=== PATIENT | female | born 1965 ===

== ENCOUNTER 2018-02-05 11:43 | Emergency (ER) | payer MEDICARE, OTHER, SELFPAY ==
[2018-02-05 11:56] VITALS: BP 154/92; PULSE 82; RESP 16; TEMP 37; O2SAT 99
--- NOTE | 2018-02-05 12:17 | ED.GENADULT ---
HPI - General Adult <SOMMER Palacios - Last Filed: 02/05/18 22:02> General Chief complaint: Hypertension Stated complaint: states blood pressure is high and head ache Time Seen by Provider: 02/05/18 12:17 Source: patient Mode of arrival: ambulatory Limitations: no limitations History of Present Illness HPI narrative: 52-year-old female with history of hypertension here for complaint of having a headache and increased blood pressures since yesterday. She reports she has had this type of headache on and off over the past 6 months. She states she has been working with her hydrological technical officer and also with sleep medicine to determine if the headache is caused by decreased oxygen levels at night. She reports that she started with a sharp headache last night. She also reports that her blood pressures been elevated over the past couple of days. She denies any fevers or chills. No trauma to the head. No nausea or vomiting. She denies any stressors or relievers of symptoms. She does state that she is taking her blood pressure medications as prescribed Related Data Home Medications Medication Instructions Recorded Confirmed epinephrine 0.3 mg IJ ONCE PRN #0 12/27/15 02/05/18 levalbuterol tartrate [Xopenex HFA] 1 puff INH Q4HP PRN #0 12/27/15 02/05/18 loratadine 10 mg PO DAILY #0 12/27/15 02/05/18 montelukast 10 mg PO DAILY #0 12/27/15 02/05/18 diclofenac sodium [Voltaren] 1 applic TOPICAL PRN PRN #0 01/19/16 02/05/18 fluticasone 2 spray INTRANASAL DAILY #0 01/19/16 02/05/18 hydralazine 10 mg PO BID #0 12/11/16 02/05/18 Disabled Parking Permit 1 ea MISCELLANEOUS DIRECTED 02/05/18 02/05/18 Domperidone 1 dose PO DIRECTED 02/05/18 02/05/18 cyclosporine [Restasis] 1 drp OPHTHALMIC (EYE) BID 02/05/18 02/05/18 enalapril maleate 2.5 mg PO DAILY 02/05/18 02/05/18 estradiol [Yuvafem] 1 tab VAGINAL 2XW 02/05/18 02/05/18 fluticasone-salmeterol [AirDuo 1 puff INHALATION DAILY 02/05/18 02/05/18 RespiClick] ketoconazole 1 applic TOPICAL DIRECTED 02/05/18 02/05/18 Allergies Allergy/AdvReac Type Severity Reaction Status Date / Time adhesive Allergy Severe RASH FROM Verified 07/25/17 15:31 TAPE bacitracin Allergy Severe SEVERE RASH Verified 07/25/17 15:31 [From Neosporin ([id number])] neomycin Allergy Severe SEVERE RASH Verified 07/25/17 15:31 [From Neosporin ([id number])] polymyxin B Allergy Severe SEVERE RASH Verified 07/25/17 15:31 [From Neosporin ([id number])] prochlorperazine Allergy Severe TARKIVE Verified 07/25/17 15:31 [From COMPAZINE] DYSKINESIA SYMPTOMS Sulfa (Sulfonamide Allergy Severe RASH Verified 07/25/17 15:31 Antibiotics) enalapril [ENALAPRIL] Allergy Intermediate ABDOMINAL Verified 07/25/17 15:31 PAIN wheat Allergy Intermediate CELIAC Verified 07/25/17 15:31 ARB-Angiotensin Receptor AdvReac Severe GI Verified 07/25/17 15:31 Antagonist DISTRESS [ARB-ANGIOTENSIN RECEPTOR AND ECZEMA ANTAGONIST] fentanyl [FENTANYL] AdvReac Severe SWELLING Verified 07/25/17 15:31 AND SUNBURN TYPE REDNESS ON CHEST AND FACE nickel [NICKEL] AdvReac Severe RASH Verified 07/25/17 15:31 nitrofurantoin AdvReac Severe FLU-LIKE Verified 07/25/17 15:31 [NITROFURANTOIN] SYMPTOMS MERCEDES Inhibitors AdvReac Intermediate Cough Verified 07/25/17 15:31 [MERCEDES INHIBITORS] amlodipine [AMLODIPINE] AdvReac Intermediate REDNESS Verified 07/25/17 15:31 clonidine [CLONIDINE] AdvReac Intermediate TOO Verified 07/25/17 15:31 SEDATING red dye AdvReac Intermediate #40 - GI Verified 07/25/17 15:31 DISTRESS tramadol [TRAMADOL] AdvReac Mild I DON'T Verified 07/25/17 15:31 LIKE TAKING IT MOLD SPORES Allergy Severe HAY FEVER Uncoded 05/29/17 12:31 AND SINUS INFECTION Review of Systems <SOMMER Palacios - Last Filed: 02/05/18 22:02> Constitutional Denies chills, Denies fever(s), Reports headache(s), Denies lethargy and Denies weakness Eyes Denies change in vision, Denies eye discharge, Denies irritation and Denies loss of vision ENT Ears, Nose, Mouth, and Throat: Denies change in voice, Reports headache(s), Denies neck pain and Denies sore throat Cardiovascular Denies chest pain, Denies irregular heart rhythm, Denies lightheadedness, Denies palpitations, Denies dyspnea, Denies dyspnea on exertion and Denies orthopnea Comments: Elevated blood pressure Respiratory Denies cough, Denies dyspnea, Denies dyspnea on exertion and Denies wheezing Gastrointestinal Gastrointestinal: Denies abdominal pain, Denies change in bowel habits, Denies diarrhea, Denies nausea and Denies vomiting Genitourinary Denies hematuria, Denies flank pain, Denies urinary incontinence and Denies urinary urgency Musculoskeletal Denies neck pain Integumentary/Breasts Denies pruritus, Denies erythema, Denies rash and Denies wounds Neurologic Denies confusion, Reports headache(s), Denies loss of vision and Denies weakness Psychiatric Denies anxiety, Denies confusion, Denies depression, Denies homicidal ideation and Denies suicidal ideation Endocrine Denies palpitations Hematologic/Lymphatic Denies easy bruising Allergic/Immunologic Denies wheezing Exam <SOMMER Palacios - Last Filed: 02/05/18 22:02> Initial Vital Signs Initial Vital Signs: Vital Signs Temperature 98.6 F 02/05/18 11:56 Pulse Rate 82 02/05/18 11:56 Respiratory Rate 16 02/05/18 11:56 Blood Pressure 154/92 H 02/05/18 11:56 Pulse Oximetry 99 02/05/18 11:56 Const General: cooperative and well developed Nutritional Appearance: well nourished Orientation: alert, awake, oriented x3 and not confused [facility] Mouth: oral mucosae normal and moist mucous membranes Throat: posterior oropharynx normal Eyes General: appearance normal, both eyes and all related structures Eyelids: eyelids normal Conjunctivae: conjunctivae normal Sclera: sclerae normal Pupils: PERRL EOM: EOM intact bilaterally Resp Effort & Inspection: normal respiratory effort, able to speak in complete sentences, no respiratory distress and no use of accessory muscles Auscultation: clear to auscultation bilaterally, no rales, no rhonchi and no wheezes Cardio Rate: regular rate Rhythm: regular rhythm Heart Sounds: no click, no gallops, no murmurs and no rubs Pulses: normal peripheral pulses Skin General: no rashes or lesions noted, No jaundice and No petechiae Neuro General: alert, oriented x3, gait normal and no focal motor deficits Speech: speech normal <Venus Fernandez MD - Last Filed: 02/07/18 15:45> Initial Vital Signs Initial Vital Signs: Vital Signs Temperature 98.6 F 02/05/18 11:56 Pulse Rate 82 02/05/18 11:56 Respiratory Rate 16 02/05/18 11:56 Blood Pressure 154/92 H 02/05/18 11:56 Pulse Oximetry 99 02/05/18 11:56 Course <SOMMER Palacios - Last Filed: 02/05/18 22:02> Orders Ordered: Discontinued Medications Sodium Chloride (Normal Saline 0.9%) 1,000 mls @ 1,000 mls/hr IV BOLUS ONE Stop: 02/05/18 13:27 Last Infusion: 02/05/18 14:07 Dose: 0 mls/hr Admin: 02/05/18 13:12 Dose: 500 mls/hr Ketorolac Tromethamine (Toradol) 30 mg IV NOW ONE Stop: 02/05/18 12:29 Last Admin: 02/05/18 13:13 Dose: 30 mg Vital Signs - 8 hr 02/05/18 11:56 02/05/18 13:00 Temperature 98.6 F Pulse Rate 82 69 Respiratory Rate 16 22 Blood Pressure 154/92 H Blood Pressure [Right Arm] 138/93 H Pulse Oximetry 99 <Venus Fernandez MD - Last Filed: 02/07/18 15:45> Orders Ordered: Discontinued Medications Sodium Chloride (Normal Saline 0.9%) 1,000 mls @ 1,000 mls/hr IV BOLUS ONE Stop: 02/05/18 13:27 Last Infusion: 02/05/18 14:07 Dose: 0 mls/hr Admin: 02/05/18 13:12 Dose: 500 mls/hr Ketorolac Tromethamine (Toradol) 30 mg IV NOW ONE Stop: 02/05/18 12:29 Last Admin: 02/05/18 13:13 Dose: 30 mg Vital Signs - 8 hr 02/05/18 11:56 12/19/18 13:00 Temperature 98.6 F Pulse Rate 82 69 Respiratory Rate 16 22 Blood Pressure 154/92 H Blood Pressure [Right Arm] 138/93 H Pulse Oximetry 99 Medical Decision Making <SOMMER Palacios - Last Filed: 02/05/18 22:02> Lab Data Result diagrams: 02/05/18 13:25 02/05/18 13:25 Lab Results 02/05/18 02/05/18 02/05/18 Range/Units 12:46 13:25 13:25 WBC 5.9 (4.5-11.0) X10^3/uL RBC 4.62 (4.0-5.2) X10^6/uL Hgb 14.0 (12.0-16.0) g/dL Hct 41.7 (36-46) % MCV 90.3 (80-100) fL MCH 30.3 (26-34) PG MCHC 33.6 (30-36) % RDW 13.3 (11.6-14.8) % Plt Count 263 (150-400) X10^3/uL Neut % (Auto) 64.6 (50-75) % Lymph % (Auto) 22.8 L (25-40) % [place] % (Auto) 9.4 (3-14) % Eos % (Auto) 2.5 (2-4) % Baso % (Auto) 0.7 (0-2) % Neut # (Auto) 3800 (5785-4441) /uL Sodium 145 (137-145) mmol/L Potassium 4.1 (3.4-5.1) mmol/L Chloride 105 (98-107) mmol/L Carbon Dioxide 25 (22-32) mmol/L BUN 13 (7-17) mg/dL Creatinine 0.60 (0.52-1.04) mg/dL Estimated GFR > 60.0 (>60) mL/min BUN/Creatinine Ratio 21.7 (6-22) Glucose 112 H (70-100) mg/dL Calcium 9.5 (8.4-10.2) mg/dL Total Bilirubin 1.0 (0.2-1.3) mg/dL AST 48 H (14-36) IU/L ALT 67 H (9-52) IU/L Alkaline Phosphatase 92 (38-126) U/L Total Creatine Kinase 36 (30-135) U/L CK-MB (CK-2) TNP CK-MB (CK-2) Rel Index TNP Troponin I < 0.012 (0.01-0.034) ng/mL Total Protein 7.0 (6.3-8.2) g/dL Albumin 4.3 (3.5-5.0) g/dL Globulin 2.7 (1.7-4.1) g/dL Albumin/Globulin Ratio 1.6 (1.0-2.8) Urine RBC None seen (0-5/HPF) Urine WBC 0-1/hpf (0-5/HPF) Ur Squamous Epith Cells 1-5 /hpf Urine Bacteria None seen (None) Ur Culture Indicated? Cult not indicated Micro UA Comment Not Reportable Urine Dip Bedside Urine Glucose Negative Bedside Urine Bilirubin - Negative Bedside Urine Ketone - Negative Urine Specific [place] 1.015 Bedside Urine Occult Blood - Negative Bedside Urine pH 6.5 Bedside Urine Protein - Negative Bedside Urine Urobilinogen - Negative Bedside Urine Nitrite - Negative Bedside Urine Leukocytes ++ 125 Esterase Point of care testing: Urine Dip Bedside Urine Glucose Negative Bedside Urine Bilirubin - Negative Bedside Urine Ketone - Negative Urine Specific [place] 1.015 Bedside Urine Occult Blood - Negative Bedside Urine pH 6.5 Bedside Urine Protein - Negative Bedside Urine Urobilinogen - Negative Bedside Urine Nitrite - Negative Bedside Urine Leukocytes ++ [address] scan - head: Radiologist's impression: [place] [address] CT Scan Report Signed Patient: Halie Tam MR#: [id number] : 1965 Acct:[id number] Age/Sex: 52 / F Date of Service: 02/05/18 Loc: ED Accession Number: [id number] Procedure: CT head/brain wo con Ordering Provider: Roderick Jiménez PROCEDURE: CT HEAD/BRAIN WO CON INDICATIONS: States elevated blood pressure with bad headache TECHNIQUE: Noncontrast 4.5 mm thick angled axial sections acquired from the foramen magnum to the vertex, with coronal and sagittal reformats. For radiation dose reduction, the following was used: automated exposure control, adjustment of mA and/or kV according to patient size. COMPARISON: None. FINDINGS: Image quality: Excellent. CSF spaces: Basal cisterns are patent. No extra-axial fluid collections. Ventricles are normal in size and shape. Brain: No midline shift. No intracranial masses or hemorrhage. Wilson-white matter interface is normal. Skull and face: Calvarium and visualized facial bones are intact, without suspicious lesions. Sinuses: Visualized sinuses and mastoids are clear. IMPRESSION: Unremarkable CT of the head. No acute intracranial hemorrhage. Dictated by: Virgil Florez M.D. on 02/05/2018 at 11:48 Approved by: Virgil Florez M.D. on 02/05/2018 at 11:49 Chest x-ray: Radiologist's impression: View Report History [address] [address] XRay Report Signed Patient: Halie Tam MR#: [id number] : 1965 Acct:[id number] Age/Sex: 52 / F Date of Service: 02/05/18 Loc: ED Accession Number: [id number] Procedure: XR chest 1V Ordering Provider: Roderick Jiménez PROCEDURE: XR CHEST 1V INDICATIONS: States elevated blood pressure TECHNIQUE: One view of the chest was acquired. COMPARISON: None. FINDINGS: Surgical changes and devices: None. Lungs and pleura: No pleural effusions or pneumothorax. Lungs are clear. Mediastinum: Mediastinal contours appear normal. Heart size is normal. Bones and chest wall: No suspicious bony lesions. Overlying soft tissues appear unremarkable. IMPRESSION: No acute disease. Dictated by: Andrei Hansen M.D. on 02/05/2018 at 13:02 Approved by: Andrei Hansen M.D. on 02/05/2018 at 13:02 ECG Data Interpretation: EKG shows normal sinus rhythm with no ST elevation or depression. No ectopy. Ventricular rate is 74. Pr interval of 1 59. QRS duration 98. QTC 401 MDM Narrative Medical decision making narrative: CBC and Chem panel were obtained were unremarkable. Cardiac enzymes were obtained and were negative. EKG shows sinus rhythm with no ST elevation or depression. No ectopy. Chest x-ray and head CT were obtained were negative for any acute findings. Headache is described as starting at the back of the skull and radiating over the top of the head suspicious for tension-type headache. She is encouraged to use range of motion to the neck and also relaxation techniques. She does have Flexeril at home she may try this as well to help with her symptoms. [id number] Tylenol or Motrin as needed for any discomfort. Believe that her blood pressure is secondary to her headache follow up with primary care provider in the next few days for re-evaluation. For any worsening symptoms return to the emergency room. <Venus Fernandez MD - Last Filed: 02/07/18 15:45> Lab Data Lab Results 02/05/18 02/05/18 02/05/18 Range/Units 12:46 13:25 13:25 WBC 5.9 (4.5-11.0) X10^3/uL RBC 4.62 (4.0-5.2) X10^6/uL Hgb 14.0 (12.0-16.0) g/dL Hct 41.7 (36-46) % MCV 90.3 (80-100) fL MCH 30.3 (26-34) PG MCHC 33.6 (30-36) % RDW 13.3 (11.6-14.8) % Plt Count 263 (150-400) X10^3/uL Neut % (Auto) 64.6 (50-75) % Lymph % (Auto) 22.8 L (25-40) % [place] % (Auto) 9.4 (3-14) % Eos % (Auto) 2.5 (2-4) % Baso % (Auto) 0.7 (0-2) % Neut # (Auto) 3800 (6555-2886) /uL Sodium 145 (137-145) mmol/L Potassium 4.1 (3.4-5.1) mmol/L Chloride 105 (98-107) mmol/L Carbon Dioxide 25 (22-32) mmol/L BUN 13 (7-17) mg/dL Creatinine 0.60 (0.52-1.04) mg/dL Estimated GFR > 60.0 (>60) mL/min BUN/Creatinine Ratio 21.7 (6-22) Glucose 112 H (70-100) mg/dL Calcium 9.5 (8.4-10.2) mg/dL Total Bilirubin 1.0 (0.2-1.3) mg/dL AST 48 H (14-36) IU/L ALT 67 H (9-52) IU/L Alkaline Phosphatase 92 (38-126) U/L Total Creatine Kinase 36 (30-135) U/L CK-MB (CK-2) TNP CK-MB (CK-2) Rel Index TNP Troponin I < 0.012 (0.01-0.034) ng/mL Total Protein 7.0 (6.3-8.2) g/dL Albumin 4.3 (3.5-5.0) g/dL Globulin 2.7 (1.7-4.1) g/dL Albumin/Globulin Ratio 1.6 (1.0-2.8) Urine RBC None seen (0-5/HPF) Urine WBC 0-1/hpf (0-5/HPF) Ur Squamous Epith Cells 1-5 /hpf Urine Bacteria None seen (None) Ur Culture Indicated? Cult not indicated Micro UA Comment Not Reportable Urine Dip Bedside Urine Glucose Negative Bedside Urine Bilirubin - Negative Bedside Urine Ketone - Negative Urine Specific [place] 1.015 Bedside Urine Occult Blood - Negative Bedside Urine pH 6.5 Bedside Urine Protein - Negative Bedside Urine Urobilinogen - Negative Bedside Urine Nitrite - Negative Bedside Urine Leukocytes ++ 125 Esterase Point of care testing: Urine Dip Bedside Urine Glucose Negative Bedside Urine Bilirubin - Negative Bedside Urine Ketone - Negative Urine Specific [place] 1.015 Bedside Urine Occult Blood - Negative Bedside Urine pH 6.5 Bedside Urine Protein - Negative Bedside Urine Urobilinogen - Negative Bedside Urine Nitrite - Negative Bedside Urine Leukocytes ++ 125 Esterase Discharge Plan Departure Patient Disposition: Home Clinical Impression: Acute tension-type headache Discharge Date/Time: 02/05/18 14:19 Interventions: ED Discharge Assessment Last Done: 02/05/18 14:18 Instructions: Tension Headache Activity Restrictions/Additional Instructions: Laboratory results imaging EKG today were unremarkable. Description of the headache suspicious for tension type headache. Try relaxation techniques range of motion exercises to help release tension. May also use already prescribed muscle relaxer. [id number] Tylenol or Motrin as needed for any discomfort. Follow up with her primary care provider. For any worsening symptoms return to the emergency room. Prescriptions: No Action loratadine 10 MG tablet 10 mg PO DAILY Qty: 0 RF: 0 montelukast 10 MG tablet 10 mg PO DAILY Qty: 0 RF: 0 levalbuterol tartrate [Xopenex HFA] 45 MCG/INH HFA aerosol inhaler 1 puff INH Q4HP PRN (Reason: Shortness Of Breath) Qty: 0 RF: 0 epinephrine 0.3 MG/0.3 ML auto-injector 0.3 mg IJ ONCE PRN (Reason: Allergic Reaction) Qty: 0 RF: 0 diclofenac sodium [Voltaren] 1 % Gel 1 applic TOPICAL PRN PRN (Reason: pain) Qty: 0 RF: 0 fluticasone 16 GM spray,suspension 2 spray Intranasal DAILY Qty: 0 RF: 0 hydralazine 10 MG tablet 10 mg PO BID Qty: 0 RF: 0 ketoconazole 2 % shampoo 1 applic Topical DIRECTED RF: 0 enalapril maleate 2.5 mg tablet 2.5 mg PO DAILY RF: 0 cyclosporine [Restasis] 0.05 % dropperette 1 drp ophthalmic (eye) BID RF: 0 estradiol [Yuvafem] 10 mcg tablet 1 tab Vaginal 2XW RF: 0 fluticasone-salmeterol [AirDuo RespiClick] 113-14 mcg/actuation aerosol powdr breath activated 1 puff Inhalation DAILY RF: 0 Domperidone 1 dose PO DIRECTED RF: 0 Disabled Parking Permit 1 ea miscellaneous DIRECTED RF: 0 Referrals: Jordyn Galaviz PA-C [[facility]] -
--- NOTE | 2018-02-05 12:28 | DI.RAD.S_ITS ---
PROCEDURE: XR CHEST 1V INDICATIONS: States elevated blood pressure TECHNIQUE: One view of the chest was acquired. COMPARISON: None. FINDINGS: Surgical changes and devices: None. Lungs and pleura: No pleural effusions or pneumothorax. Lungs are clear. Mediastinum: Mediastinal contours appear normal. Heart size is normal. Bones and chest wall: No suspicious bony lesions. Overlying soft tissues appear unremarkable. IMPRESSION: No acute disease. Dictated by: Andrei Hansen M.D. on 02/05/2018 at 13:02 Approved by: Andrei Hansen M.D. on 02/05/2018 at 13:02
--- NOTE | 2018-02-05 12:39 | DI.CT.S_ITS ---
PROCEDURE: CT HEAD/BRAIN WO CON INDICATIONS: States elevated blood pressure with bad headache TECHNIQUE: Noncontrast 4.5 mm thick angled axial sections acquired from the foramen magnum to the vertex, with coronal and sagittal reformats. For radiation dose reduction, the following was used: automated exposure control, adjustment of mA and/or kV according to patient size. COMPARISON: None. FINDINGS: Image quality: Excellent. CSF spaces: Basal cisterns are patent. No extra-axial fluid collections. Ventricles are normal in size and shape. Brain: No midline shift. No intracranial masses or hemorrhage. Wilson-white matter interface is normal. Skull and face: Calvarium and visualized facial bones are intact, without suspicious lesions. Sinuses: Visualized sinuses and mastoids are clear. IMPRESSION: Unremarkable CT of the head. No acute intracranial hemorrhage. Dictated by: Virgil Florez M.D. on 02/05/2018 at 11:48 Approved by: Virgil Florez M.D. on 02/05/2018 at 11:49
[2018-02-05 12:54] LABS: Bacteria Urine None Seen; RBC Urine None Seen (0-5/HPF)
[2018-02-05 12:55] LABS: WBC Urine 0-1/HPF (0-5/HPF)
[2018-02-05 12:56] LABS: Culture Indicated Urine Cult Not Indicated; Squamous Epithelial Cell Urine 1-5 /HPF
[2018-02-05 13:00] VITALS: BP 138/93; PULSE 69; RESP 22
[2018-02-05] MEDS: SODIUM CHLORIDE 0.9% 1,000 ML 500 ML IV (13:12)
[2018-02-05] MEDS: KETOROLAC 60 MG/2 ML VIAL 30 MG IV (13:13)
[2018-02-05 13:31] LABS: Add Manual Diff / Slide Review NO; Basophils Percent Auto 0.7 % (0-2); Eosinophils Percent Auto 2.5 % (2-4); Hematocrit 41.7 % (36-46); Lymphocytes Percent Auto 22.8 % (25-40); Mean Corpuscular HGB Conc 33.6 % (30-36); Mean Corpuscular Hemoglobin 30.3 PG (26-34); Mean Corpuscular Volume 90.3 fL (80-100); Monocytes Percent Auto 9.4 % (3-14); Neutrophils Absolute Auto 3800 /uL (1500-7000); Neutrophils Percent Auto 64.6 % (50-75); Platelet Count 263 X10^3/uL (150-400); Red Blood Cell Count 4.62 X10^6/uL (4.0-5.2); Red Cell Distribution Width 13.3 % (11.6-14.8); White Blood Cell Count 5.9 X10^3/uL (4.5-11.0)
[2018-02-05 13:43] LABS: Alanine Aminotransferase 67 IU/L (9-52); Albumin 4.3 g/dL (3.5-5.0); Albumin Globulin Ratio 1.6 (1.0-2.8); Alkaline Phosphatase 92 U/L (38-126); Aspartate Aminotransferase 48 IU/L (14-36); BUN Creatinine Ratio 21.7 (6-22); Blood Urea Nitrogen 13 mg/dL (7-17); Calcium 9.5 mg/dL (8.4-10.2); Carbon Dioxide 25 mmol/L (22-32); Chloride 105 mmol/L (98-107); Creatine Kinase 36 U/L (30-135); Estimated Glomerular Filt Rate > 60.0 mL/min (>60); Globulin 2.7 g/dL (1.7-4.1); Glucose 112 mg/dL (70-100); HEMOLYSIS < 15 (0-50); Potassium 4.1 mmol/L (3.4-5.1); Sodium 145 mmol/L (137-145)
--- NOTE | 2018-02-05 13:52 | ED_ITS ---
HPI - General Adult <SOMMER Palacios - Last Filed: 02/05/18 22:02> General Chief complaint: Hypertension Stated complaint: states blood pressure is high and head ache Time Seen by Provider: 02/05/18 12:17 Source: patient Mode of arrival: ambulatory Limitations: no limitations History of Present Illness HPI narrative: 52-year-old female with history of hypertension here for complaint of having a headache and increased blood pressures since yesterday. She reports she has had this type of headache on and off over the past 6 months. She states she has been working with her casino manager and also with sleep medicine to determine if the headache is caused by decreased oxygen levels at night. She reports that she started with a sharp headache last night. She also reports that her blood pressures been elevated over the past couple of days. She denies any fevers or chills. No trauma to the head. No nausea or vomiting. She denies any stressors or relievers of symptoms. She does state that she is taking her blood pressure medications as prescribed Related Data Home Medications Medication Instructions Recorded Confirmed epinephrine 0.3 mg IJ ONCE PRN #0 12/27/15 02/05/18 levalbuterol tartrate [Xopenex HFA] 1 puff INH Q4HP PRN #0 12/27/15 02/05/18 loratadine 10 mg PO DAILY #0 12/27/15 02/05/18 montelukast 10 mg PO DAILY #0 12/27/15 02/05/18 diclofenac sodium [Voltaren] 1 applic TOPICAL PRN PRN #0 01/19/16 02/05/18 fluticasone 2 spray INTRANASAL DAILY #0 01/19/16 02/05/18 hydralazine 10 mg PO BID #0 12/11/16 02/05/18 Disabled Parking Permit 1 ea MISCELLANEOUS DIRECTED 02/05/18 02/05/18 Domperidone 1 dose PO DIRECTED 02/05/18 02/05/18 cyclosporine [Restasis] 1 drp OPHTHALMIC (EYE) BID 02/05/18 02/05/18 enalapril maleate 2.5 mg PO DAILY 02/05/18 02/05/18 estradiol [Yuvafem] 1 tab VAGINAL 2XW 02/05/18 02/05/18 fluticasone-salmeterol [AirDuo 1 puff INHALATION DAILY 02/05/18 02/05/18 RespiClick] ketoconazole 1 applic TOPICAL DIRECTED 02/05/18 02/05/18 Allergies Allergy/AdvReac Type Severity Reaction Status Date / Time adhesive Allergy Severe RASH FROM Verified 07/25/17 15:31 TAPE bacitracin Allergy Severe SEVERE RASH Verified 07/25/17 15:31 [From Neosporin ([id number])] neomycin Allergy Severe SEVERE RASH Verified 07/25/17 15:31 [From Neosporin ([id number])] polymyxin B Allergy Severe SEVERE RASH Verified 07/25/17 15:31 [From Neosporin ([id number])] prochlorperazine Allergy Severe TARKIVE Verified 07/25/17 15:31 [From COMPAZINE] DYSKINESIA SYMPTOMS Sulfa (Sulfonamide Allergy Severe RASH Verified 07/25/17 15:31 Antibiotics) enalapril [ENALAPRIL] Allergy Intermediate ABDOMINAL Verified 07/25/17 15:31 PAIN wheat Allergy Intermediate CELIAC Verified 07/25/17 15:31 ARB-Angiotensin Receptor AdvReac Severe GI Verified 07/25/17 15:31 Antagonist DISTRESS [ARB-ANGIOTENSIN RECEPTOR AND ECZEMA ANTAGONIST] fentanyl [FENTANYL] AdvReac Severe SWELLING Verified 07/25/17 15:31 AND SUNBURN TYPE REDNESS ON CHEST AND FACE nickel [NICKEL] AdvReac Severe RASH Verified 07/25/17 15:31 nitrofurantoin AdvReac Severe FLU-LIKE Verified 07/25/17 15:31 [NITROFURANTOIN] SYMPTOMS MERCEDES Inhibitors AdvReac Intermediate Cough Verified 07/25/17 15:31 [MERCEDES INHIBITORS] amlodipine [AMLODIPINE] AdvReac Intermediate REDNESS Verified 07/25/17 15:31 clonidine [CLONIDINE] AdvReac Intermediate TOO Verified 07/25/17 15:31 SEDATING red dye AdvReac Intermediate #40 - GI Verified 07/25/17 15:31 DISTRESS tramadol [TRAMADOL] AdvReac Mild I DON'T Verified 07/25/17 15:31 LIKE TAKING IT MOLD SPORES Allergy Severe HAY FEVER Uncoded 05/29/17 12:31 AND SINUS INFECTION Review of Systems <SOMMER Palacios - Last Filed: 02/05/18 22:02> Constitutional Denies chills, Denies fever(s), Reports headache(s), Denies lethargy and Denies weakness Eyes Denies change in vision, Denies eye discharge, Denies irritation and Denies loss of vision ENT Ears, Nose, Mouth, and Throat: Denies change in voice, Reports headache(s), Denies neck pain and Denies sore throat Cardiovascular Denies chest pain, Denies irregular heart rhythm, Denies lightheadedness, Denies palpitations, Denies dyspnea, Denies dyspnea on exertion and Denies orthopnea Comments: Elevated blood pressure Respiratory Denies cough, Denies dyspnea, Denies dyspnea on exertion and Denies wheezing Gastrointestinal Gastrointestinal: Denies abdominal pain, Denies change in bowel habits, Denies diarrhea, Denies nausea and Denies vomiting Genitourinary Denies hematuria, Denies flank pain, Denies urinary incontinence and Denies urinary urgency Musculoskeletal Denies neck pain Integumentary/Breasts Denies pruritus, Denies erythema, Denies rash and Denies wounds Neurologic Denies confusion, Reports headache(s), Denies loss of vision and Denies weakness Psychiatric Denies anxiety, Denies confusion, Denies depression, Denies homicidal ideation and Denies suicidal ideation Endocrine Denies palpitations Hematologic/Lymphatic Denies easy bruising Allergic/Immunologic Denies wheezing Exam <SOMMER Palacios - Last Filed: 02/05/18 22:02> Initial Vital Signs Initial Vital Signs: Vital Signs Temperature 98.6 F 02/05/18 11:56 Pulse Rate 82 02/05/18 11:56 Respiratory Rate 16 02/05/18 11:56 Blood Pressure 154/92 H 02/05/18 11:56 Pulse Oximetry 99 02/05/18 11:56 Const General: cooperative and well developed Nutritional Appearance: well nourished Orientation: alert, awake, oriented x3 and not confused [facility] Mouth: oral mucosae normal and moist mucous membranes Throat: posterior oropharynx normal Eyes General: appearance normal, both eyes and all related structures Eyelids: eyelids normal Conjunctivae: conjunctivae normal Sclera: sclerae normal Pupils: PERRL EOM: EOM intact bilaterally Resp Effort & Inspection: normal respiratory effort, able to speak in complete sentences, no respiratory distress and no use of accessory muscles Auscultation: clear to auscultation bilaterally, no rales, no rhonchi and no wheezes Cardio Rate: regular rate Rhythm: regular rhythm Heart Sounds: no click, no gallops, no murmurs and no rubs Pulses: normal peripheral pulses Skin General: no rashes or lesions noted, No jaundice and No petechiae Neuro General: alert, oriented x3, gait normal and no focal motor deficits Speech: speech normal <Venus Fernandez MD - Last Filed: 02/07/18 15:45> Initial Vital Signs Initial Vital Signs: Vital Signs Temperature 98.6 F 02/05/18 11:56 Pulse Rate 82 02/05/18 11:56 Respiratory Rate 16 02/05/18 11:56 Blood Pressure 154/92 H 02/05/18 11:56 Pulse Oximetry 99 02/05/18 11:56 Course <SOMMER Palacios - Last Filed: 02/05/18 22:02> Orders Ordered: Discontinued Medications Sodium Chloride (Normal Saline 0.9%) 1,000 mls @ 1,000 mls/hr IV BOLUS ONE Stop: 02/05/18 13:27 Last Infusion: 02/05/18 14:07 Dose: 0 mls/hr Admin: 02/05/18 13:12 Dose: 500 mls/hr Ketorolac Tromethamine (Toradol) 30 mg IV NOW ONE Stop: 02/05/18 12:29 Last Admin: 02/05/18 13:13 Dose: 30 mg Vital Signs - 8 hr 02/05/18 11:56 02/05/18 13:00 Temperature 98.6 F Pulse Rate 82 69 Respiratory Rate 16 22 Blood Pressure 154/92 H Blood Pressure [Right Arm] 138/93 H Pulse Oximetry 99 <Venus Fernandez MD - Last Filed: 02/07/18 15:45> Orders Ordered: Discontinued Medications Sodium Chloride (Normal Saline 0.9%) 1,000 mls @ 1,000 mls/hr IV BOLUS ONE Stop: 02/05/18 13:27 Last Infusion: 02/05/18 14:07 Dose: 0 mls/hr Admin: 02/05/18 13:12 Dose: 500 mls/hr Ketorolac Tromethamine (Toradol) 30 mg IV NOW ONE Stop: 02/05/18 12:29 Last Admin: 02/05/18 13:13 Dose: 30 mg Vital Signs - 8 hr 02/05/18 11:56 12/19/18 13:00 Temperature 98.6 F Pulse Rate 82 69 Respiratory Rate 16 22 Blood Pressure 154/92 H Blood Pressure [Right Arm] 138/93 H Pulse Oximetry 99 Medical Decision Making <SOMMER Palacios - Last Filed: 02/05/18 22:02> Lab Data Result diagrams: 02/05/18 13:25 02/05/18 13:25 Lab Results 02/05/18 02/05/18 02/05/18 Range/Units 12:46 13:25 13:25 WBC 5.9 (4.5-11.0) X10^3/uL RBC 4.62 (4.0-5.2) X10^6/uL Hgb 14.0 (12.0-16.0) g/dL Hct 41.7 (36-46) % MCV 90.3 (80-100) fL MCH 30.3 (26-34) PG MCHC 33.6 (30-36) % RDW 13.3 (11.6-14.8) % Plt Count 263 (150-400) X10^3/uL Neut % (Auto) 64.6 (50-75) % Lymph % (Auto) 22.8 L (25-40) % [place] % (Auto) 9.4 (3-14) % Eos % (Auto) 2.5 (2-4) % Baso % (Auto) 0.7 (0-2) % Neut # (Auto) 3800 (6378-6257) /uL Sodium 145 (137-145) mmol/L Potassium 4.1 (3.4-5.1) mmol/L Chloride 105 (98-107) mmol/L Carbon Dioxide 25 (22-32) mmol/L BUN 13 (7-17) mg/dL Creatinine 0.60 (0.52-1.04) mg/dL Estimated GFR > 60.0 (>60) mL/min BUN/Creatinine Ratio 21.7 (6-22) Glucose 112 H (70-100) mg/dL Calcium 9.5 (8.4-10.2) mg/dL Total Bilirubin 1.0 (0.2-1.3) mg/dL AST 48 H (14-36) IU/L ALT 67 H (9-52) IU/L Alkaline Phosphatase 92 (38-126) U/L Total Creatine Kinase 36 (30-135) U/L CK-MB (CK-2) TNP CK-MB (CK-2) Rel Index TNP Troponin I < 0.012 (0.01-0.034) ng/mL Total Protein 7.0 (6.3-8.2) g/dL Albumin 4.3 (3.5-5.0) g/dL Globulin 2.7 (1.7-4.1) g/dL Albumin/Globulin Ratio 1.6 (1.0-2.8) Urine RBC None seen (0-5/HPF) Urine WBC 0-1/hpf (0-5/HPF) Ur Squamous Epith Cells 1-5 /hpf Urine Bacteria None seen (None) Ur Culture Indicated? Cult not indicated Micro UA Comment Not Reportable Urine Dip Bedside Urine Glucose Negative Bedside Urine Bilirubin - Negative Bedside Urine Ketone - Negative Urine Specific [place] 1.015 Bedside Urine Occult Blood - Negative Bedside Urine pH 6.5 Bedside Urine Protein - Negative Bedside Urine Urobilinogen - Negative Bedside Urine Nitrite - Negative Bedside Urine Leukocytes ++ 125 Esterase Point of care testing: Urine Dip Bedside Urine Glucose Negative Bedside Urine Bilirubin - Negative Bedside Urine Ketone - Negative Urine Specific [place] 1.015 Bedside Urine Occult Blood - Negative Bedside Urine pH 6.5 Bedside Urine Protein - Negative Bedside Urine Urobilinogen - Negative Bedside Urine Nitrite - Negative Bedside Urine Leukocytes ++ [address] scan - head: Radiologist's impression: [place] [address] CT Scan Report Signed Patient: Halie Tam MR#: [id number] : 1965 Acct:[id number] Age/Sex: 52 / F Date of Service: 02/05/18 Loc: ED Accession Number: [id number] Procedure: CT head/brain wo con Ordering Provider: Roderick Jiménez PROCEDURE: CT HEAD/BRAIN WO CON INDICATIONS: States elevated blood pressure with bad headache TECHNIQUE: Noncontrast 4.5 mm thick angled axial sections acquired from the foramen magnum to the vertex, with coronal and sagittal reformats. For radiation dose reduction, the following was used: automated exposure control, adjustment of mA and/or kV according to patient size. COMPARISON: None. FINDINGS: Image quality: Excellent. CSF spaces: Basal cisterns are patent. No extra-axial fluid collections. Ventricles are normal in size and shape. Brain: No midline shift. No intracranial masses or hemorrhage. Wilson-white matter interface is normal. Skull and face: Calvarium and visualized facial bones are intact, without suspicious lesions. Sinuses: Visualized sinuses and mastoids are clear. IMPRESSION: Unremarkable CT of the head. No acute intracranial hemorrhage. Dictated by: Virgil Florez M.D. on 02/05/2018 at 11:48 Approved by: Virgil Florez M.D. on 02/05/2018 at 11:49 Chest x-ray: Radiologist's impression: View Report History [address] [address] XRay Report Signed Patient: Halie Tam MR#: [id number] : 1965 Acct:[id number] Age/Sex: 52 / F Date of Service: 02/05/18 Loc: ED Accession Number: [id number] Procedure: XR chest 1V Ordering Provider: Roderick Jiménez PROCEDURE: XR CHEST 1V INDICATIONS: States elevated blood pressure TECHNIQUE: One view of the chest was acquired. COMPARISON: None. FINDINGS: Surgical changes and devices: None. Lungs and pleura: No pleural effusions or pneumothorax. Lungs are clear. Mediastinum: Mediastinal contours appear normal. Heart size is normal. Bones and chest wall: No suspicious bony lesions. Overlying soft tissues appear unremarkable. IMPRESSION: No acute disease. Dictated by: Andrei Hansen M.D. on 02/05/2018 at 13:02 Approved by: Andrei Hansen M.D. on 02/05/2018 at 13:02 ECG Data Interpretation: EKG shows normal sinus rhythm with no ST elevation or depression. No ectopy. Ventricular rate is 74. Pr interval of 1 59. QRS duration 98. QTC 401 MDM Narrative Medical decision making narrative: CBC and Chem panel were obtained were unremarkable. Cardiac enzymes were obtained and were negative. EKG shows sinus rhythm with no ST elevation or depression. No ectopy. Chest x-ray and head CT were obtained were negative for any acute findings. Headache is described as starting at the back of the skull and radiating over the top of the head suspicious for tension-type headache. She is encouraged to use range of motion to the neck and also relaxation techniques. She does have Flexeril at home she may try this as well to help with her symptoms. [id number] Tylenol or Motrin as needed for any discomfort. Believe that her blood pressure is secondary to her headache follow up with primary care provider in the next few days for re-evaluation. For any worsening symptoms return to the emergency room. <Venus Fernandez MD - Last Filed: 02/07/18 15:45> Lab Data Lab Results 02/05/18 02/05/18 02/05/18 Range/Units 12:46 13:25 13:25 WBC 5.9 (4.5-11.0) X10^3/uL RBC 4.62 (4.0-5.2) X10^6/uL Hgb 14.0 (12.0-16.0) g/dL Hct 41.7 (36-46) % MCV 90.3 (80-100) fL MCH 30.3 (26-34) PG MCHC 33.6 (30-36) % RDW 13.3 (11.6-14.8) % Plt Count 263 (150-400) X10^3/uL Neut % (Auto) 64.6 (50-75) % Lymph % (Auto) 22.8 L (25-40) % [place] % (Auto) 9.4 (3-14) % Eos % (Auto) 2.5 (2-4) % Baso % (Auto) 0.7 (0-2) % Neut # (Auto) 3800 (9622-8767) /uL Sodium 145 (137-145) mmol/L Potassium 4.1 (3.4-5.1) mmol/L Chloride 105 (98-107) mmol/L Carbon Dioxide 25 (22-32) mmol/L BUN 13 (7-17) mg/dL Creatinine 0.60 (0.52-1.04) mg/dL Estimated GFR > 60.0 (>60) mL/min BUN/Creatinine Ratio 21.7 (6-22) Glucose 112 H (70-100) mg/dL Calcium 9.5 (8.4-10.2) mg/dL Total Bilirubin 1.0 (0.2-1.3) mg/dL AST 48 H (14-36) IU/L ALT 67 H (9-52) IU/L Alkaline Phosphatase 92 (38-126) U/L Total Creatine Kinase 36 (30-135) U/L CK-MB (CK-2) TNP CK-MB (CK-2) Rel Index TNP Troponin I < 0.012 (0.01-0.034) ng/mL Total Protein 7.0 (6.3-8.2) g/dL Albumin 4.3 (3.5-5.0) g/dL Globulin 2.7 (1.7-4.1) g/dL Albumin/Globulin Ratio 1.6 (1.0-2.8) Urine RBC None seen (0-5/HPF) Urine WBC 0-1/hpf (0-5/HPF) Ur Squamous Epith Cells 1-5 /hpf Urine Bacteria None seen (None) Ur Culture Indicated? Cult not indicated Micro UA Comment Not Reportable Urine Dip Bedside Urine Glucose Negative Bedside Urine Bilirubin - Negative Bedside Urine Ketone - Negative Urine Specific [place] 1.015 Bedside Urine Occult Blood - Negative Bedside Urine pH 6.5 Bedside Urine Protein - Negative Bedside Urine Urobilinogen - Negative Bedside Urine Nitrite - Negative Bedside Urine Leukocytes ++ 125 Esterase Point of care testing: Urine Dip Bedside Urine Glucose Negative Bedside Urine Bilirubin - Negative Bedside Urine Ketone - Negative Urine Specific [place] 1.015 Bedside Urine Occult Blood - Negative Bedside Urine pH 6.5 Bedside Urine Protein - Negative Bedside Urine Urobilinogen - Negative Bedside Urine Nitrite - Negative Bedside Urine Leukocytes ++ 125 Esterase Discharge Plan Departure Patient Disposition: Home Clinical Impression: Acute tension-type headache Discharge Date/Time: 02/05/18 14:19 Interventions: ED Discharge Assessment Last Done: 02/05/18 14:18 Instructions: Tension Headache Activity Restrictions/Additional Instructions: Laboratory results imaging EKG today were unremarkable. Description of the headache suspicious for tension type headache. Try relaxation techniques range of motion exercises to help release tension. May also use already prescribed muscle relaxer. [id number] Tylenol or Motrin as needed for any discomfort. Follow up with her primary care provider. For any worsening symptoms return to the emergency room. Prescriptions: No Action loratadine 10 MG tablet 10 mg PO DAILY Qty: 0 RF: 0 montelukast 10 MG tablet 10 mg PO DAILY Qty: 0 RF: 0 levalbuterol tartrate [Xopenex HFA] 45 MCG/INH HFA aerosol inhaler 1 puff INH Q4HP PRN (Reason: Shortness Of Breath) Qty: 0 RF: 0 epinephrine 0.3 MG/0.3 ML auto-injector 0.3 mg IJ ONCE PRN (Reason: Allergic Reaction) Qty: 0 RF: 0 diclofenac sodium [Voltaren] 1 % Gel 1 applic TOPICAL PRN PRN (Reason: pain) Qty: 0 RF: 0 fluticasone 16 GM spray,suspension 2 spray Intranasal DAILY Qty: 0 RF: 0 hydralazine 10 MG tablet 10 mg PO BID Qty: 0 RF: 0 ketoconazole 2 % shampoo 1 applic Topical DIRECTED RF: 0 enalapril maleate 2.5 mg tablet 2.5 mg PO DAILY RF: 0 cyclosporine [Restasis] 0.05 % dropperette 1 drp ophthalmic (eye) BID RF: 0 estradiol [Yuvafem] 10 mcg tablet 1 tab Vaginal 2XW RF: 0 fluticasone-salmeterol [AirDuo RespiClick] 113-14 mcg/actuation aerosol powdr breath activated 1 puff Inhalation DAILY RF: 0 Domperidone 1 dose PO DIRECTED RF: 0 Disabled Parking Permit 1 ea miscellaneous DIRECTED RF: 0 Referrals: Jordyn Galaviz PA-C [[employer] Rep] -
[2018-02-05 13:55] LABS: Troponin I < 0.012 ng/mL (0.01-0.034)
[2018-02-05 14:00] VITALS: BP 123/77; PULSE 66; RESP 21
== END 2018-02-05 14:19 | disposition home or self-care (01) ==
PROVIDERS: Emergency Provider Nurse Practitioner Family; Family Provider Internal Medicine; PCP Internal Medicine
DX: G44.209 Tension-type headache, unspecified, not intractable (principal)
CPT/HCPCS: 36415; 70450; 71045; 80053; 81003; 81015; 82550; 84484; 85025; 93005; 96361; 96374; 99283; 99285; J1885

== ENCOUNTER → 2019-09-01 16:31 | Outpatient (CLI) | payer MEDICARE, OTHER, SELFPAY ==
[2019-09-01 17:47] LABS: Hemoglobin A1C% w Est Avg Glu 6.1 % (4.0-6.0)
[2019-09-01 18:43] LABS: TSH w/ Reflex to FT4 2.52 uIU/mL (0.47-4.68)
== END ==
PROVIDERS: Family Provider Internal Medicine; PCP Internal Medicine; Referring Provider Internal Medicine; Visit Provider Internal Medicine
DX: E11.9 Type 2 diabetes mellitus without complications (principal); E03.9 Hypothyroidism, unspecified
CPT/HCPCS: 36415; 83036; 84443